=== PATIENT | female | born 1990 | race Caucasian/White ===

== ENCOUNTER 2017-05-03 09:53 | Emergency (ER) | payer BC ==
[~2017-05-03] VITALS: Ht 165.1 cm; Wt 88.5 kg
[2017-05-03 10:00] VITALS: BP 140/65
--- NOTE | 2017-05-03 11:03 | PHYS DOC ---
Past History Past Medical History: No Pertinent History Smoking: Non-smoker Adult General Chief Complaint Chief Complaint: LACERATION/AVULSION HPI HPI 27-year-old right-handed female patient states she cut her left index finger with cutting vegetables this morning. She complaining of laceration of finger with bleeding and mild pain. Last tetanus immunization is unknown. Review of Systems Review of Systems Constitutional: Denies fever or chills [] Eyes: Denies change in visual acuity, redness, or eye pain [] HENT: Denies nasal congestion or sore throat [] Respiratory: Denies cough or shortness of breath [] Cardiovascular: No additional information not addressed in HPI [] GI: Denies abdominal pain, nausea, vomiting, bloody stools or diarrhea [] : Denies dysuria or hematuria [] Musculoskeletal: Denies back pain or joint pain] Integument: Denies rash or skin lesions [, reports laceration] Neurologic: Denies headache, focal weakness or sensory changes [] Endocrine: Denies polyuria or polydipsia [] All other systems were reviewed and found to be within normal limits, except as documented in this note. Physical Exam Physical Exam Constitutional: Well developed, well nourished, mild distress, non-toxic appearance. [] HENT: Normocephalic, atraumatic, bilateral external ears normal, oropharynx moist, no oral exudates, nose normal. [] Eyes: PERRLA, EOMI, conjunctiva normal, no discharge. [] Neck: Normal range of motion, no tenderness, supple, no stridor. [] Cardiovascular:Heart rate regular rhythm, no murmur [] Lungs & Thorax: Bilateral breath sounds clear to auscultation [] Skin: Warm, dry, no erythema, no rash. Index finger laceration. [] Extremities: No tenderness, no cyanosis, no clubbing, ROM intact, no edema. Left index finger superficial 1 cm laceration in volar side of distal pharynx with mild bleeding. [] Neurologic: Alert and oriented X 3, normal motor function, normal sensory function, no focal deficits noted. [] Psychologic: Affect normal, judgement normal, mood normal. [] EKG EKG [] Radiology/Procedures Radiology/Procedures [] Course & Med Decision Making Course & Med Decision Making Evaluation of patient in ER showed 27-year-old male patient with left index finger laceration that was treated with Dermabond and Steri-Strip. Dragon Disclaimer Dragon Disclaimer This electronic medical record was generated, in whole or in part, using a voice recognition dictation system. Departure Departure: Impression: Primary Impression: Laceration of left index finger Additional Impression: Need for immunization against tetanus alone Disposition: HOME, SELF-CARE (At 1102) Condition: IMPROVED Referrals: PCP,SILVIA (PCP) Patient Instructions: Tissue Adhesive Wound Care Additional Instructions: Keep wound clean and dry Follow-up with your primary care physician as needed Procedure - 1055: Laceration repair in left index finger, 1 cm superficial laceration was repaired with Dermabond and Steri-Strip. Problem Qualifiers RENETTA ROJAS MD May 03, 2017 11:03
[2017-05-03] MEDS ORDERED: TETANUS AND DIPHTHERIA TOX/PF 0.5 ML VIAL. VAX IM ONE (11:30)
== END 2017-05-03 11:44 | disposition home or self-care (01) ==
LOC: ER 09:53
DX: S61.211A Laceration without foreign body of left index finger without damage to nail, initial encounter (principal); W26.0XXA Contact with knife, initial encounter; Y93.89 Activity, other specified; Y99.8 Other external cause status; Y92.89 Other specified places as the place of occurrence of the external cause
CPT/HCPCS: 12001; 90471; 90714; 99283-25

== ENCOUNTER → 2019-03-29 | Outpatient (CLI) | payer BC ==
--- NOTE | 2019-03-29 15:01 | RAD ---
BILATERAL BREAST SONOGRAPHY Clinical indications: Bilateral breast lumps discovered by the patient's physician. The patient is unsure where they are located. No family history of breast cancer. Left breast: High-resolution sonography of all 4 quadrants and the retroareolar region of the left breast was performed. No focal sonographic abnormality is evident. High-resolution sonography of the left axilla was performed and no focal sonographic abnormality is evident. Right breast: High-resolution sonography of all 4 quadrants and the retroareolar region of the right breast was performed. No focal sonographic abnormality is evident. High-resolution sonography of the right axilla was performed and no focal sonographic abnormality is evident. IMPRESSION: No focal sonographic abnormality of either breast is evident. With regard to any palpable abnormality, follow-up should be clinical. If palpable abnormality persists, then bilateral diagnostic mammography may be helpful for further evaluation. BI-RADS Category 1 negative Electronically signed by: Aleksey Lang MD (03/29/2019 2:58 PM) [facility]
== END | disposition home or self-care (01) ==
LOC: US 13:58
PROVIDERS: ATTEND Obstetrics & Gynecology
DX: N63.20 Unspecified lump in the left breast, unspecified quadrant (principal); N63.10 Unspecified lump in the right breast, unspecified quadrant
CPT/HCPCS: 76641

== ENCOUNTER 2021-01-08 18:07 | Emergency (ER) | payer BC ==
[~2021-01-08] VITALS: Ht 165.1 cm; Wt 78.5 kg
--- NOTE | 2021-01-08 18:21 | EKG ---
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
--- NOTE | 2021-01-08 18:25 | PHYS DOC ---
Past History Past Medical History: No Pertinent History Additional Past Medical Histor: endometriosis (BOOKER PENN APRN) Past Surgical History: Other Additional Past Surgical Histo: laproscopic for endometro (BOOKER PENN APRN) Smoking: Non-smoker Alcohol Use: Occasionally Drug Use: None (BOOKER PENN APRN) General Adult EDM: Chief Complaint: CHEST PAIN HPI: HPI: Patient is a 30-year-old female being seen in the ER for midsternal chest pain since Wednesday. She states that the pain is intermittent. It does not radiate. She describes it as a sharp pain. She rates it 6 out of 10. Along with the chest pain she is experiencing shortness of breath, lightheadedness. Patient states that she thought the chest pain was due to her anxiety but she has never had an anxiety attack like this before. She denies nausea, vomiting, cough, fever. She is mildly tachycardic in the ER at a rate of 103. She is not hypoxic. (BOOKER PENN APRN) Review of Systems: Review of Systems: 14 body systems of the review of systems have been reviewed. See HPI for pertinent positive and negative responses, otherwise all other systems are negative, nonpertinent or noncontributory (BOOKER PENN APRN) Current Medications: Current Meds: Current Medications Medications (Trade) Dose Ordered Sig/Ruel Start Time Stop Time Status Last Admin Dose Admin Sodium Chloride 1,000 ml @ 1,000 mls/hr Q1H 01/08/21 18:30 01/08/21 19:29 UNV (BOOKER PENN APRN) Allergies: Allergies: Allergies Coded Allergies Type Severity Reaction Last Updated Verified acetaminophen Allergy Unknown 05/03/17 Yes hydrocodone Allergy Unknown 05/03/17 Yes morphine Allergy Unknown 05/03/17 Yes (BOOKER PENN APRN) Physical Exam: PE: Constitutional: Well developed, well nourished, no acute distress, non-toxic appearance. [] HENT: Normocephalic, atraumatic, bilateral external ears normal, oropharynx moist, no oral exudates, nose normal. [] Eyes: PERRL, EOMI, conjunctiva normal, no discharge. [] Neck: Normal range of motion, no stridor Cardiovascular:Heart rate regular rhythm, no murmur, chest pain not reproducible Lungs & Thorax: Bilateral breath sounds clear to auscultation [] Abdomen: Bowel sounds normal, soft, no tenderness, no masses, no pulsatile masses. [] Skin: Warm, dry, no erythema, no rash. [] Back: Normal range of motion Extremities: No tenderness, no cyanosis, no clubbing, ROM intact, no edema. [] Neurologic: Alert and oriented X 3, normal motor function, normal sensory function, no focal deficits noted. [] Psychologic: Affect normal, judgement normal, mood normal. [] (BOOKER PENN APRN) Current Patient Data: Labs: Laboratory Tests Test 01/08/21 18:30 White Blood Count 5.6 x10^3/uL Red Blood Count 4.70 x10^6/uL Hemoglobin 13.7 g/dL Hematocrit 40.3 % Mean Corpuscular Volume 86 fL Mean Corpuscular Hemoglobin 29 pg Mean Corpuscular Hemoglobin Concent 34 g/dL Red Cell Distribution Width 13.0 % Platelet Count 253 x10^3/uL Neutrophils (%) (Auto) 42 % Lymphocytes (%) (Auto) 50 % Monocytes (%) (Auto) 6 % Eosinophils (%) (Auto) 2 % Basophils (%) (Auto) 1 % Neutrophils # (Auto) 2.4 x10^3uL Lymphocytes # (Auto) 2.8 x10^3/uL Monocytes # (Auto) 0.3 x10^3/uL Eosinophils # (Auto) 0.1 x10^3/uL Basophils # (Auto) 0.0 x10^3/uL D-Dimer (Dinora) 0.46 mg/L Sodium Level 139 mmol/L Potassium Level 3.5 mmol/L Chloride Level 103 mmol/L Carbon Dioxide Level 27 mmol/L Anion Gap 9 Blood Urea Nitrogen 10 mg/dL Creatinine 0.7 mg/dL Estimated GFR (Cockcroft-Gault) 97.0 BUN/Creatinine Ratio 14 Glucose Level 91 mg/dL Calcium Level 8.9 mg/dL Total Bilirubin 0.4 mg/dL Aspartate Amino Transf (AST/SGOT) 15 U/L Alanine Aminotransferase (ALT/SGPT) 22 U/L Alkaline Phosphatase 63 U/L Troponin I Quantitative < 0.017 ng/mL Total Protein 7.7 g/dL Albumin 3.9 g/dL Albumin/Globulin Ratio 1.0 Current Medications Medications (Trade) Dose Ordered Sig/Ruel Route PRN Reason Start Time Stop Time Status Last Admin Dose Admin Sodium Chloride 1,000 ml @ 1,000 mls/hr Q1H IV 01/08/21 18:30 01/08/21 19:29 DC 01/08/21 18:30 Vital Signs: Vital Signs Date Time Temp Pulse Resp B/P (MAP) Pulse Ox O2 Delivery O2 Flow Rate FiO2 01/08/21 18:17 116 24 147/76 (99) 99 (BOOKER PENN APRN) EKG: EKG: EKG performed by ER 11/10/2009 shows sinus tachycardia at a rate of 103, no STEMI read by Dr. Gibbons at 1818. [] (BOOKER PENN APRN) Radiology/Procedures: Radiology/Procedures: REASON: cp PROCEDURE: PORTABLE CHEST 1V EXAM: CHEST 1 VIEW History: Chest pain COMPARISON: None available. TECHNIQUE: Single portable radiograph of the chest FINDINGS: The cardiac silhouette is unremarkable. The lungs are clear bilaterally. The costophrenic sulci are clear and well demarcated. IMPRESSION: No radiographic evidence of an acute cardiopulmonary process. Electronically signed by: Brigido Whitfield MD (01/08/2021 7:17 PM) [id number] DICTATED AND SIGNED BY: BRIGIDO WHITFIELD MD DATE: 01/08/211915 CC: BOOKER PENN APRN; PCP,NO ~MTH0 0 [] (BOOKER PENN APRN) Heart Score: C/O Chest Pain: Yes HEART Score for Chest Pain: HEART Score for Chest Pain Response (Comments) Value History Slighlty/Non-Suspicious 0 ECG Normal 0 Age < 45 0 Risk Factors No Risk Factors 0 Troponin < Normal Limit 0 Total 0 Risk Factors: Risk Factors: DM, Current or recent (<one month) smoker, HTN, HLP, family history of CAD, obesity. Risk Scores: Score 0 - 3: 2.5% MACE over next 6 weeks - Discharge Home Score 4 - 6: 20.3% MACE over next 6 weeks - Admit for Clinical Observation Score 7 - 10: 72.7% MACE over next 6 weeks - Early Invasive Strategies (BOOKER PENN APRN) Course & Med Decision Making: Course & Med Decision Making Pertinent Labs and Imaging studies reviewed. (See chart for details) [] Patient is a 30-year-old female who presents to the ER for intermittent chest pain since Wednesday. Work-up in the ER consisted of blood work, EKG, chest x- ray. Patient given IV fluids in ER. Of in the ER was unremarkable. Negative Troponin, ddimer. heart score is 0. Heart rate is now controlled rate of 98. Patient's vital signs are stable. Patient advised to follow-up with a primary care provider. I discussed with patient all findings and diagnostic testing as well as the need to follow-up with PCP for further evaluation and treatment or return to the ER if any new or worsening symptoms. Strict return precautions were also discussed at length. Patient voiced understanding and agreement with the plan. Patient is hemodynamically stable at the time of disposition. (BOOKER PENN APRN) Dragon Disclaimer: Dragon Disclaimer: This electronic medical record was generated, in whole or in part, using a voice recognition dictation system. (BOOKER PENN APRN) Attending Co-Sign The patient was seen and interviewed as well as examined at the bedside. The chart was reviewed. The case was discussed. Agree with the plan of care. (CHANTE GIBBONS DO) Departure Departure: Impression: Primary Impression: Chest pain Qualified Codes: R07.9 - Chest pain, unspecified Disposition: HOME / SELF CARE / HOMELESS Condition: GOOD Referrals: PCP,NO (PCP) Patient Instructions: Chest Pain (Nonspecific) Additional Instructions: You are seen in the ER today for chest pain. Your work-up was unremarkable. Your physical exam was reassuring. As we discussed, at this time you are not having acute coronary event. Please follow-up with your primary care provider tomorrow regarding your ER visit. If you develop worsening of your chest pain, shortness of breath, dizziness or lightheadedness, intractable nausea or vomit ing, high fevers refractory to treatment or any new or worsening concerns please return to the ER. EMERGENCY DEPARTMENT GENERAL DISCHARGE INSTRUCTIONS Thank you for coming to [facility] (ED) today and trusting us with you care. We trust that you had a positivie experience in our Emergency Department. If you wish to speak to the department management, you may call the director at [phone]. YOUR FOLLOW UP INSTRUCTIONS ARE FOLLOWS: 1. Do you have a private Doctor? If you do not have a private doctor, please ask for a resource list of physicians or clinics that may be able to assist you with follow up care. 2. The Emergency Physician has interpreted your x-rays. The X-Ray specialist will also review them. If there is a change in the findings, you will be notified in 48 hours when at all possible. 3. A lab test or culture has been done, your results will be reviewed and you will be notified if you need a change in treatment. ADDITIONAL INSTRUCTIONS AND INFORMATION: 1. Your care today has been supervised by a physician who is specially trained in emergency care. Many problems require more than one evaluation for a complete diagnosis and treatment. We recommend that you schedule your follow up appointment as khurram mmended to ensure complete treatment of you illness or injury. If you are unable to obtain follow up care and continue to have a problem, or if your condition worsens, we recommend that you return to the ED. 2. We are not able to safely determine your condition over the phone nor are we able to give sound medical advice over the phone. For these safety reasons, if you call for medical advice we will ask you to come to the ED for further evaluation. 3. If you have any questions regarding these discharge instructions please call the ED at [phone]. SAFETY INFORMATION: In the interest of safety, wellness, and injury prevention; we encourage you to wear your sealbelt, if you smoke; quite smoking, and we encourage family to use a protective helmet for bicycling and other sporting events that present an increased risk for head injury. IF YOUR SYMPTOMS WORSEN OR NEW SYMPTOMS DEVELOP, OR YOU HAVE CONCERNS ABOUT YOUR CONDITION; OR IF YOUR CONDITION WORSENS WHILE YOU ARE WAITING FOR YOUR FOLLOW UP APPOINTMENT; EITHER CONTACT YOUR PRIMARY CARE DOCTOR, THE PHYSICIAN WHOSE NAME AND NUMBER YOU WERE GIVEN, OR RETURN TO THE ED IMMEDIATELY. BOOKER PENN APRN Jan 08, 2021 18:25 CHANTE GIBBONS DO Jan 09, 2021 00:20
[2021-01-08] MEDS: IV NORMAL SALINE 1,000ML 1,000 ML IV SCH (18:30)
[2021-01-08 18:43] LABS: BASO % 1 % (0-3); EOS # 0.1 x10^3/uL (0.0-0.7); EOS % 2 % (0-3); HEMATOCRIT 40.3 % (36.0-47.0); HEMOGLOBIN 13.7 g/dL (12.0-15.5); LYMPH # 2.8 x10^3/uL (1.0-4.8); LYMPH % 50 % (24-48); MEAN CORPUSCULAR HEMOGLOBIN 29 pg (25-35); MEAN CORPUSCULAR HGB CONC 34 g/dL (31-37); MEAN CORPUSCULAR VOLUME 86 fL (79-100); MONO # 0.3 x10^3/uL (0.0-1.1); MONO % 6 % (0-9); NEUT # 2.4 x10^3uL (1.8-7.7); NEUT % 42 % (31-73); PLATELET COUNT 253 x10^3/uL (140-400); WHITE BLOOD COUNT 5.6 x10^3/uL (4.0-11.0)
[2021-01-08 18:56] LABS: CALCIUM 8.9 mg/dL (8.5-10.1); CREATININE 0.7 mg/dL (0.6-1.0); POTASSIUM 3.5 mmol/L (3.5-5.1)
[2021-01-08 19:01] LABS: ALBUMIN 3.9 g/dL (3.4-5.0); TOTAL BILIRUBIN 0.4 mg/dL (0.2-1.0); TOTAL PROTEIN 7.7 g/dL (6.4-8.2)
--- NOTE | 2021-01-08 19:20 | RAD ---
EXAM: CHEST 1 VIEW History: Chest pain COMPARISON: None available. TECHNIQUE: Single portable radiograph of the chest FINDINGS: The cardiac silhouette is unremarkable. The lungs are clear bilaterally. The costophrenic sulci are clear and well demarcated. IMPRESSION: No radiographic evidence of an acute cardiopulmonary process. Electronically signed by: Brigido Whitfield MD (01/08/2021 7:17 PM) [id number]
[2021-01-08 19:41] VITALS: BP 140/73
== END 2021-01-08 19:53 | disposition home or self-care (01) ==
LOC: ER 18:07
DX: R07.2 Precordial pain (principal); R06.02 Shortness of breath; R42 Dizziness and giddiness; Z88.5 Allergy status to narcotic agent; Z88.8 Allergy status to other drugs, medicaments and biological substances
CPT/HCPCS: 36415; 71045; 80053; 84484; 85025; 85379; 93005; 96360; 99285; J7030